=== PATIENT | male | born 1970 | race Caucasian/White ===

== ENCOUNTER 2019-03-13 21:26 | Emergency (ER) | payer OTHER ==
[2019-03-13] MEDS ORDERED: Ondansetron 4 MG/2 ML SDV IVPUSH ONE (21:44)
[2019-03-13] MEDS ORDERED: Sodium Chloride 0.9% 10 ML Syringe FLUSH PRN (21:44)
[2019-03-13] MEDS ORDERED: Lactated Ringers 1,000 ML IV SCH (21:45)
--- NOTE | 2019-03-13 21:48 | EDM.PDOC ---
ED HPI GENERAL MEDICAL PROBLEM - General Chief Complaint: Gastrointestinal Problem Stated Complaint: STOMACH PAIN Time Seen by Provider: 03/13/19 21:38 Source of Information: Reports: Patient History Limitations: Reports: No Limitations - History of Present Illness INITIAL COMMENTS - FREE TEXT/NARRATIVE: Patient presents with complaints of right upper quadrant pain, nausea, dry heaving since 0900 today. States he had diarrhea all day yesterday. No recent ill contact. Denies worsening with eating. [place] on [employer], no record here. States he takes lisinopril for HTN, has had back and shoulder surgeries. Denies other medical history. Smokes 1 PPD, rare alcohol use. Denies history of kidney stones. Denies headache, fever, chills, chest pain, SOB. Regular extremity strength. No neurological complaints. Denies urinary or bowel complaints. Onset: Sudden Onset Date: 03/13/19 Duration: Intermittent Location: Reports: Abdomen Quality: Reports: Sharp, Stabbing Severity: Severe Associated Symptoms: Reports: Nausea/Vomiting - Related Data Allergies Allergy/AdvReac Type Severity Reaction Status Date / Time No Known Allergies Allergy Verified 03/13/19 22:33 ED ROS GENERAL - Review of Systems Review Of Systems: See Below Constitutional: Reports: No Symptoms HEENT: Reports: No Symptoms Respiratory: Reports: No Symptoms Cardiovascular: Reports: No Symptoms Endocrine: Reports: No Symptoms GI/Abdominal: Reports: Abdominal Pain, Diarrhea, Nausea, Vomiting : Reports: No Symptoms Musculoskeletal: Reports: No Symptoms Skin: Reports: No Symptoms Neurological: Reports: No Symptoms Psychiatric: Reports: No Symptoms Hematologic/Lymphatic: Reports: No Symptoms Immunologic: Reports: No Symptoms ED EXAM, GI/ABD - Physical Exam Exam: See Below Exam Limited By: No Limitations General Appearance: Alert, WD/WN, Moderate Distress Eyes: Bilateral: Normal Appearance, EOMI Ears: Normal TMs Nose: Normal Inspection, Normal Mucosa, No Blood Throat/Mouth: Normal Inspection, Normal Lips, Normal Teeth, Normal Gums, Normal Oropharynx, Normal Voice, No Airway Compromise Head: Atraumatic, Normocephalic Neck: Normal Inspection, Supple, Non-Tender, Full Range of Motion Respiratory/Chest: No Respiratory Distress, Lungs Clear, Normal Breath Sounds, No Accessory Muscle Use, Chest Non-Tender Cardiovascular: Normal Peripheral Pulses, Regular Rate, Rhythm, No Edema, No Gallop, No JVD, No Murmur, No Rub GI/Abdominal Exam: Normal Bowel Sounds, No Organomegaly, No Distention, No Abnormal Bruit, No Mass, Guarding, Tender Back Exam: Normal Inspection, Full Range of Motion, NT Extremities: Normal Inspection, Normal Range of Motion, Non-Tender, Normal Capillary Refill, No Pedal Edema Neurological: Alert, Oriented, CN II-XII Intact, Normal Cognition, Normal Gait, Normal Reflexes, No Motor/Sensory Deficits Psychiatric: Normal Affect, Normal Mood Skin Exam: Warm, Dry, Intact, Normal Color, No Rash Lymphatic: No Adenopathy Course - Orders/Labs/Meds Orders: Active Orders 24 hr Category Date Time Status Abdomen 2V AP Flat Upright [CR] Stat Exams 03/13/19 21:44 Ordered Abdomen Pelvis w wo Cont [CT] Stat Exams 03/13/19 22:29 Ordered Lactated Ringers [Ringers, Lactated] 1,000 ml Med 03/13/19 21:45 Ordered IV ASDIRECTED Sodium Chloride 0.9% [Saline Flush] Med 03/13/19 21:44 Ordered 10 ml FLUSH ASDIRECTED PRN Saline Lock Insert [OM.PC] Routine Oth 03/13/19 21:44 Ordered Medication Orders Lactated Ringer's (Ringers, Lactated) 1,000 mls @ 999 mls/hr IV ASDIRECTED NURIA Sodium Chloride (Saline Flush) 10 ml FLUSH ASDIRECTED PRN PRN Reason: Keep Vein Open Labs: Laboratory Tests 03/13/19 03/13/19 03/13/19 Range/Units 22:07 22:07 23:09 WBC 11.0 H (4.0-10.0) x10^3/uL RBC 4.64 (4.5-6.0) x10^6/uL Hgb 14.5 (14.0-18.0) g/dL Hct 41.8 (40.0-52.0) % MCV 90.1 (78.0-93.0) fL MCH 31.3 (26.0-32.0) pg MCHC 34.7 (32.0-36.0) g/dL RDW Coeff of Tera 13.3 (10.0-15.0) % Plt Count 260 (130-400) x10^3/uL Neut % (Auto) 65.9 (50.0-80.0) % Lymph % (Auto) 24.6 L (25.0-50.0) % [place] % (Auto) 7.3 (2.0-11.0) % Eos % (Auto) 1.7 (0.0-4.0) % Baso % (Auto) 0.5 (0.2-1.2) % Sodium 136 (136-145) mmol/L Potassium 4.0 (3.5-5.1) mmol/L Chloride 101 (98-107) mmol/L Carbon Dioxide 23 (21-32) mmol/L Anion Gap 16.0 (10-20) mmol/L BUN 13 (7-18) mg/dL Creatinine 1.0 (0.70-1.30) mg/dL Est Cr Clr Drug Dosing TNP Estimated GFR (MDRD) > 60 Glucose 289 H (74-106) mg/dL Calcium 8.5 (8.5-10.1) mg/dL Corrected Calcium 8.98 (8.5-10.1) mg/dL Total Bilirubin 0.3 (0.2-1.0) mg/dL AST 18 (15-37) U/L ALT 34 (16-63) U/L Alkaline Phosphatase 91 (46-116) U/L C-Reactive Protein 2.0 H (<=0.9) mg/dL Total Protein 7.4 (6.4-8.2) g/dL Albumin 3.4 (3.4-5.0) g/dL Globulin 4.0 Albumin/Globulin Ratio 0.85 Amylase 30 (25-115) U/L Lipase 226 (73-393) U/L Urine Color Yellow (YELLOW) Urine Appearance Clear (CLEAR) Urine pH 5.5 (5.0-8.0) Ur Specific [place] 1.020 Urine Protein Negative (NEGATIVE) mg/dL Urine Glucose (UA) 500 H (NEGATIVE) mg/dL Urine Ketones Negative (NEGATIVE) mg/dL Urine Occult Blood Negative (NEGATIVE) Urine Nitrite Negative (NEGATIVE) Urine Bilirubin Negative (NEGATIVE) Urine Urobilinogen 0.2 (0.2) EU/dL Ur Leukocyte Esterase Negative (NEGATIVE) Urine RBC Not seen (NOT SEEN) /HPF Urine WBC Not seen (NOT SEEN) /HPF Ur Squamous Epith Cells Not seen (NEGATIVE) /HPF Urine Bacteria Not seen (NEGATIVE) /HPF Urine Mucus Not seen (NEGATIVE) /LPF Meds: Medications Generic Name Dose Route Start Last Admin Trade Name Freq PRN Reason Stop Dose Admin Lactated Ringer's 1,000 mls @ 999 mls/hr 03/13/19 21:45 Ringers, Lactated IV ASDIRECTED NURIA Sodium Chloride 10 ml 03/13/19 21:44 Saline Flush FLUSH ASDIRECTED PRN Keep Vein Open Discontinued Medications Generic Name Dose Route Start Last Admin Trade Name Freq PRN Reason Stop Dose Admin Hydrocodone Bitart/Acetaminophen 1 packet 03/14/19 00:15 Take Home: Acetaminophen/Hydrocodone 325-10mg PO 03/14/19 00:16 ONETIME ONE Iopamidol 100 ml 03/13/19 22:44 03/13/19 22:56 Isovue-300 (61%) IVPUSH 03/13/19 22:45 100 ml ONETIME ONE Administration Ondansetron HCl 4 mg 03/13/19 21:44 Zofran IVPUSH 03/13/19 21:45 ONETIME ONE Ondansetron HCl 1 packet 03/14/19 00:15 Take Home: Ondansetron Odt 4 Mg, 2 Tab Pack PO 03/14/19 00:16 ONETIME ONE - Radiology Interpretation Free Text/Narrative:: Abdominal CT shows gall stone within the gall bladder neck. - Re-Assessments/Exams Free Text/Narrative Re-Assessment/Exam: 03/14/19 00:35 Urine glucose elevated, blood glucose also elevated. Patient counseled regarding seeing primary care for likely diabetes. Departure - Departure Time of Disposition: 00:36 Disposition: Home, Self-Care 01 Condition: Fair Clinical Impression: Cholecystitis - Discharge Information *PRESCRIPTION DRUG MONITORING PROGRAM REVIEWED*: Not Applicable *COPY OF PRESCRIPTION DRUG MONITORING REPORT IN PATIENT MIK: Not Applicable Instructions: Nausea and Vomiting, Adult, [id number], Cholecystitis, Easy-to- Read Forms: ED Department Discharge Additional Instructions: Plan 1. You are ok to go home tonight. You do have a blocked duct from a gallstone and will need to schedule surgery on an outpatient basis. 2. I have given you pain medications and medication for nausea. If you experience increasing pain and nausea make sure to come back to the ER. 3. Try to stay well hydrated. I would also recommend that you return home to [place] for your outpatient surgical consultation. Surgery may be recommended over the next few days. 4. Please call if you have any additional questions or concerns. - Problem List & Annotations (1) Cholecystitis SNOMED Code(s): 60058034 Code(s): K81.9 - CHOLECYSTITIS, UNSPECIFIED Status: Acute Priority: Medium Current Visit: Yes - Problem List Review Problem List Initiated/Reviewed/Updated: Yes - My Orders Last 24 Hours: My Active Orders 03/13/19 21:44 Abdomen 2V AP Flat Upright [CR] Stat Sodium Chloride 0.9% [Saline Flush] 10 ml FLUSH ASDIRECTED PRN Saline Lock Insert [OM.PC] Routine 03/13/19 21:45 Lactated Ringers [Ringers, Lactated] 1,000 ml IV ASDIRECTED 03/13/19 22:29 Abdomen Pelvis w wo Cont [CT] Stat - Assessment/Plan Last 24 Hours: My Active Orders 03/13/19 21:44 Abdomen 2V AP Flat Upright [CR] Stat Sodium Chloride 0.9% [Saline Flush] 10 ml FLUSH ASDIRECTED PRN Saline Lock Insert [OM.PC] Routine 03/13/19 21:45 Lactated Ringers [Ringers, Lactated] 1,000 ml IV ASDIRECTED 03/13/19 22:29 Abdomen Pelvis w wo Cont [CT] Stat Assessment:: cholecystitis Plan: Plan 1. You are ok to go home tonight. You do have a blocked duct from a gallstone and will need to schedule surgery on an outpatient basis. 2. I have given you pain medications and medication for nausea. If you experience increasing pain and nausea make sure to come back to the ER. 3. Try to stay well hydrated. I would also recommend that you return home to [place] for your outpatient surgical consultation. Surgery may be recommended over the next few days. 4. Please call if you have any additional questions or concerns.
[2019-03-13 22:35] LABS: CHLORIDE,CL 101 mmol/L (98-107); SODIUM,NA 136 mmol/L (136-145)
[2019-03-13] MEDS ORDERED: Iopamidol 612 MG/ML 100 ML Bottle IVPUSH ONE (22:44)
[2019-03-14] MEDS ORDERED: Take Home: Ondansetron 4 MG Tab.DIS, 2 Tab Pack PO ONE (00:15)
[2019-03-14] MEDS ORDERED: Take Home: Acetaminophen/HYDROcodone 325-10 MG, 5 Tab Pack PO ONE (00:15)
--- NOTE | 2019-03-14 07:38 | CR ---
[id number] RAD/RAD Abd Flat and Upright 2V EXAM: ABDOMEN 5 VIEWS INDICATION: Abdominal pain, nausea and vomiting. COMPARISON: None. DISCUSSION: The bowel gas pattern is normal in appearance without free air or pneumatosis detected. There are about 5 calcifications in the right upper quadrant measuring up to 6 mm which may represent gallstones. Degenerative changes in the spine. IMPRESSION: 1. Right upper quadrant calcifications likely represent gallstones. Jarrett Montes De Oca MD 03/14/19 0737 Thank you for allowing us to participate in the care of your patient.
--- NOTE | 2019-03-14 07:55 | CT ---
[id number] CT/CT Abdomen Pelvis WWO IV EXAM: CT Abdomen Pelvis WWO IV CLINICAL DATA: CALCIFICATIONS OF GALL BLADDER ON XRAY COMPARISON STUDY: None. FINDINGS: Lung bases are clear. Cholelithiasis. No evidence of acute cholecystitis. Common bile duct is normal in caliber. Hepatomegaly and diffuse hepatic steatosis. No bowel obstruction or inflammation. Appendix is normal. No lymphadenopathy, free fluid, or pneumoperitoneum. Spondylosis diffusely throughout the spine. Findings including advanced degenerative disc disease at L3-4 in addition to advanced facet joint arthropathy at L4-5 and L5-S1. IMPRESSION: Hepatomegaly and diffuse hepatic steatosis. Cholelithiasis. Other findings are described above. Clarence Chand MD 03/14/19 0754 Thank you for allowing us to participate in the care of your patient.
== END 2019-03-14 00:38 | disposition home or self-care (01) ==
LOC: SUPCPDRO 21:26 → VM.ED 21:26
DX: K81.9 Cholecystitis, unspecified (principal)
CPT/HCPCS: 74019; 74178; 80053; 81001; 82150; 83690; 85025; 86140; 96361; 96374; 99284; A9270; J2405; J7120; Q9967; 81002